=== PATIENT | male | born 1995 | race Caucasian/White ===

== ENCOUNTER 2016-08-31 02:48 | Emergency (ER) | payer OTHER ==
[~2016-08-31] VITALS: Ht 175.2 cm; Wt 62.6 kg
[~2016-08-31 02:48] MED LIST: AMOXICILLIN500 M2 PO; AMOXICILLIN500 MG PO; ANAPROX DS550 MG PO; CLEOCIN150 MG PO; COLACE100 MG PO; DARVOCET N 1001 TAB PO; HYDROCODONE BIT1 T11 PO; IBU-6600 MG PO; KEFLEX500 MG PO; MOTRIN800 MG PO; MUCINEX1200 M1 PO; Motrin,Rufen800 MG PO; NAPROSYN500 MG PO; NKHM; NORCO 10-325 T1 EACH PO; NORCO 5-325 TA1 EACH PO; SEROQUEL PO; ZITHROMAX250 MG PO; ZOFRAN ODT4 MG SL; Zofran4 MG PO
[2016-08-31] MEDS ORDERED: PENICILLIN VK500 MG PO (03:05)
[2016-08-31] MEDS ORDERED: PERIDEX118 ML MM (03:05)
[2016-08-31] MEDS ORDERED: NAPROSYN500 MG PO (03:05)
[2016-09-30] MEDS ORDERED: CLINDAMYCIN HC300 MG PO (00:07)
[2016-09-30] MEDS ORDERED: HYDROCODONE BIT1 T11 PO (00:39)
[2016-10-20] MEDS ORDERED: IBU800 M1 PO (22:33)
[2016-10-20] MEDS ORDERED: NAPROSYN500 MG PO (22:47)
[2016-10-20] MEDS ORDERED: AMOXICILLIN500 M2 PO (22:47)
[2016-11-01] MEDS ORDERED: CLINDAMYCIN HC300 MG PO (23:33)
[2016-11-01] MEDS ORDERED: ANAPROX DS550 MG PO (23:33)
== END 2016-08-31 03:20 | disposition home or self-care (01) ==
LOC: ED 02:48
DX: K06.9 Disorder of gingiva and edentulous alveolar ridge, unspecified (principal); K02.9 Dental caries, unspecified; R51 Headache; F17.200 Nicotine dependence, unspecified, uncomplicated; F32.9 Major depressive disorder, single episode, unspecified; F25.9 Schizoaffective disorder, unspecified

== ENCOUNTER 2016-11-13 20:10 | Emergency (ER) | payer OTHER ==
[~2016-11-13] VITALS: Ht 175.2 cm; Wt 59.0 kg
[~2016-11-13 20:10] MED LIST changes: +CLINDAMYCIN HC300 MG PO; +IBU800 M1 PO; +PENICILLIN VK500 MG PO; +PERIDEX118 ML MM
[2016-11-13] MEDS ORDERED: NAPROSYN500 MG PO (23:40)
[2016-11-13] MEDS ORDERED: PREDNISONE50 MG PO (23:40)
[2016-11-13] MEDS ORDERED: VALIUM5 MG PO (23:40)
== END 2016-11-13 23:50 | disposition home or self-care (01) ==
LOC: ED 20:10
DX: S29.019A Strain of muscle and tendon of unspecified wall of thorax, initial encounter (principal); F17.200 Nicotine dependence, unspecified, uncomplicated; X58.XXXA Exposure to other specified factors, initial encounter; Y93.89 Activity, other specified; Y92.9 Unspecified place or not applicable; Y99.9 Unspecified external cause status

== ENCOUNTER 2016-11-19 18:57 | Emergency (ER) | payer OTHER ==
[~2016-11-19] VITALS: Ht 172.7 cm; Wt 63.5 kg
[~2016-11-19 18:57] MED LIST changes: +PREDNISONE50 MG PO; +VALIUM5 MG PO
[2016-11-19] MEDS ORDERED: ANUSOL-HC25 MG R (19:48)
[2016-11-19 19:49] LABS: BASO # 0.1 10*3/uL (0.0-0.1); BASO % 0.6 % (0.0-1.0); EOS # 0.3 10*3/uL (0.0-0.4); EOS % 2.5 % (1.0-4.0); HEMATOCRIT 43.9 % (42.0-52.0); IG # 0.3 10*3/uL (0.0-0.1); LYMPH # 3.2 10*3/uL (1.3-4.4); LYMPH % 27.7 % (27.0-41.0); MEAN CELL VOLUME 84.6 fl (80.0-94.0); MEAN CORPUSCULAR HGB 28.9 pg (27.0-31.0); MEAN CORPUSCULAR HGB CONC 34.2 g/dl (33.0-37.0); MEAN PLATELET VOLUME 9.8 fl (9.6-12.3); MONO # 0.9 10*3/uL (0.1-1.0); MONO % 7.9 % (3.0-9.0); NEUT # 6.8 10*3/uL (2.3-7.9); NEUT % 58.9 % (47.0-73.0); PLATELET COUNT AUTOMATED 279 10*3/uL (130-400); RED BLOOD COUNT 5.19 10*6/uL (4.50-5.90); RED CELL DISTRI WIDTH 14.3 % (0-14.5); WHITE BLOOD COUNT 11.5 10*3/uL (4.8-10.8)
[2016-11-19] MEDS ORDERED: PAIN RELIEVER325 MG PO (19:49)
[2016-11-19 20:04] LABS: BUN 12 mg/dl (7-24); CARBON DIOXIDE 27 mmol/L (21-32); CHLORIDE 106 mmol/L (98-107); EST GLOM FILT AFRICAN AMERICAN > 60 ml/min; GLUCOSE 81 mg/dL (65-99); POTASSIUM 3.7 mmol/L (3.5-5.1); SODIUM 142 mmol/L (136-145)
== END 2016-11-19 20:25 | disposition home or self-care (01) ==
LOC: ED 18:57
PROVIDERS: Emergency Medicine Emergency Medical Services
DX: K62.5 Hemorrhage of anus and rectum (principal); F32.9 Major depressive disorder, single episode, unspecified; F25.9 Schizoaffective disorder, unspecified; Z79.899 Other long term (current) drug therapy

== ENCOUNTER 2016-12-27 20:14 | Emergency (ER) | payer OTHER ==
[~2016-12-27] VITALS: Ht 175.2 cm; Wt 59.0 kg
[~2016-12-27 20:14] MED LIST changes: +ANUSOL-HC25 MG R; +PAIN RELIEVER325 MG PO
[2016-12-27] MEDS ORDERED: KETOROLAC10 MG PO (21:36)
[2016-12-27] MEDS ORDERED: Orphenadrine C100 MG PO (21:36)
== END 2016-12-27 21:51 | disposition home or self-care (01) ==
LOC: ED 20:14
DX: S16.1XXA Strain of muscle, fascia and tendon at neck level, initial encounter (principal); F32.9 Major depressive disorder, single episode, unspecified; F25.9 Schizoaffective disorder, unspecified; X50.0XXA Overexertion from strenuous movement or load, initial encounter; Y93.9 Activity, unspecified; Y92.89 Other specified places as the place of occurrence of the external cause; Y99.9 Unspecified external cause status

== ENCOUNTER 2017-02-04 17:11 | Emergency (ER) | payer OTHER ==
[~2017-02-04] VITALS: Ht 175.2 cm; Wt 59.9 kg
[~2017-02-04 17:11] MED LIST changes: +KETOROLAC10 MG PO; +Orphenadrine C100 MG PO
== END 2017-02-04 19:04 | disposition home or self-care (01) ==
LOC: ED 17:11
DX: S60.222A Contusion of left hand, initial encounter (principal); S60.221A Contusion of right hand, initial encounter; F17.200 Nicotine dependence, unspecified, uncomplicated; X58.XXXA Exposure to other specified factors, initial encounter; Y93.89 Activity, other specified; Y92.89 Other specified places as the place of occurrence of the external cause; Y99.8 Other external cause status

== ENCOUNTER 2017-04-02 23:03 | Emergency (ER) | payer OTHER ==
[~2017-04-02] VITALS: Ht 175.2 cm; Wt 61.2 kg
[2017-04-02] MEDS ORDERED: CLINDAMYCIN150 MG PO (23:18)
[2017-04-03] MEDS ORDERED: ZOFRAN4 MG PO (19:16)
[2017-04-03] MEDS ORDERED: BENTYL10 MG PO (19:16)
== END 2017-04-02 23:35 | disposition home or self-care (01) ==
LOC: ED 23:03
DX: K02.9 Dental caries, unspecified (principal); K04.01 Reversible pulpitis; F17.200 Nicotine dependence, unspecified, uncomplicated

== ENCOUNTER 2017-04-03 16:41 | Emergency (ER) | payer OTHER ==
[~2017-04-03] VITALS: Wt 61.2 kg
[~2017-04-03 16:41] MED LIST changes: +CLINDAMYCIN150 MG PO
[2017-04-03 17:00] LABS: BASO % 0.4 % (0.0-1.0); EOS # 0.3 10*3/uL (0.0-0.4); EOS % 3.1 % (1.0-4.0); HEMATOCRIT 44.9 % (42.0-52.0); HEMOGLOBIN 15.5 g/dl (14.0-18.0); LYMPH # 1.8 10*3/uL (1.3-4.4); LYMPH % 17.9 % (27.0-41.0); MEAN CELL VOLUME 84.7 fl (80.0-94.0); MEAN CORPUSCULAR HGB 29.2 pg (27.0-31.0); MEAN CORPUSCULAR HGB CONC 34.5 g/dl (33.0-37.0); MEAN PLATELET VOLUME 9.8 fl (9.6-12.3); MONO # 0.7 10*3/uL (0.1-1.0); MONO % 7.1 % (3.0-9.0); NEUT # 7.2 10*3/uL (2.3-7.9); NEUT % 71.1 % (47.0-73.0); PLATELET COUNT AUTOMATED 294 10*3/uL (130-400); RED CELL DISTRI WIDTH 14.3 % (0-14.5); WHITE BLOOD COUNT 10.1 10*3/uL (4.8-10.8)
[2017-04-03 17:16] LABS: ALBUMIN 4.2 gm/dl (3.1-4.5); ALKALINE PHOSPHATASE 91 U/L (45-117); BILIRUBIN, TOTAL 0.3 mg/dl (0.2-1.0); BUN 14 mg/dl (7-24); CARBON DIOXIDE 21 mmol/L (21-32); CHLORIDE 108 mmol/L (98-107); EST GLOM FILT AFRICAN AMERICAN > 60 ml/min; GLUCOSE 91 mg/dL (65-99); POTASSIUM 4.5 mmol/L (3.5-5.1); SGOT/AST 18 IU/L (3-35); SGPT/ALT 26 U/L (12-78); SODIUM 136 mmol/L (136-145); TOTAL PROTEIN 7.6 gm/dL (6.4-8.2)
[2017-04-03] MEDS ORDERED: ZOFRAN4 MG PO (19:16)
[2017-04-03] MEDS ORDERED: BENTYL10 MG PO (19:16)
== END 2017-04-03 19:23 | disposition home or self-care (01) ==
LOC: ED 16:41
PROVIDERS: Nurse Practitioner Family
DX: R19.7 Diarrhea, unspecified (principal); R10.30 Lower abdominal pain, unspecified

== ENCOUNTER 2017-04-07 00:09 | Emergency (ER) | payer OTHER ==
[~2017-04-07] VITALS: Ht 175.2 cm; Wt 61.2 kg
[~2017-04-07 00:09] MED LIST changes: +BENTYL10 MG PO; +ZOFRAN4 MG PO
[2017-04-07] MEDS ORDERED: Motrin,Rufen800 MG PO (00:29)
== END 2017-04-07 00:51 | disposition home or self-care (01) ==
LOC: ED 00:09
DX: K04.01 Reversible pulpitis (principal); K02.9 Dental caries, unspecified; F17.200 Nicotine dependence, unspecified, uncomplicated

== ENCOUNTER 2018-01-21 18:22 | Emergency (ER) | payer OTHER ==
[~2018-01-21] VITALS: Ht 177.8 cm; Wt 66.7 kg
[2018-01-21] MEDS ORDERED: CYCLOBENZAPRINE5 M3 PO (20:52)
[2018-01-21] MEDS ORDERED: Motrin,Rufen800 MG PO (20:52)
== END 2018-01-21 21:00 | disposition home or self-care (01) ==
LOC: ED 18:22
DX: S20.221A Contusion of right back wall of thorax, initial encounter (principal); M54.2 Cervicalgia; M25.511 Pain in right shoulder; W11.XXXA Fall on and from ladder, initial encounter; Y93.89 Activity, other specified; Y92.89 Other specified places as the place of occurrence of the external cause; Y99.8 Other external cause status

== ENCOUNTER 2018-05-11 18:21 | Emergency (ER) | payer OTHER ==
[~2018-05-11] VITALS: Ht 175.2 cm; Wt 68.0 kg
[~2018-05-11 18:21] MED LIST changes: +CYCLOBENZAPRINE5 M3 PO
[2018-05-11] MEDS ORDERED: NORCO 5-325 TA1 EACH PO (19:19)
[2018-05-11] MEDS ORDERED: IBUPROFEN600 MG PO (19:19)
[2018-05-11] MEDS ORDERED: SILVADENE,SSD C50 GM T (19:19)
== END 2018-05-11 19:35 | disposition home or self-care (01) ==
LOC: ED 18:21
DX: T24.292A Burn of second degree of multiple sites of left lower limb, except ankle and foot, initial encounter (principal); X08.8XXA Exposure to other specified smoke, fire and flames, initial encounter; Y93.61 Activity, american tackle football; Y92.89 Other specified places as the place of occurrence of the external cause; Y99.8 Other external cause status

== ENCOUNTER 2021-01-26 22:17 | Emergency (ER) | payer OTHER ==
[~2021-01-26] VITALS: Ht 172.7 cm; Wt 81.6 kg
[~2021-01-26 22:17] MED LIST changes: +IBUPROFEN600 MG PO; +SILVADENE,SSD C50 GM T
[2021-01-26] MEDS ORDERED: SILVADENE20 GM T (22:27)
== END 2021-01-26 23:42 | disposition home or self-care (01) ==
LOC: ED 22:17
DX: T23.201A Burn of second degree of right hand, unspecified site, initial encounter (principal); Z79.899 Other long term (current) drug therapy; X08.8XXA Exposure to other specified smoke, fire and flames, initial encounter; Y93.89 Activity, other specified; Y92.89 Other specified places as the place of occurrence of the external cause; Y99.8 Other external cause status

== ENCOUNTER 2021-01-31 21:50 | Emergency (ER) | payer OTHER ==
[~2021-01-31] VITALS: Ht 177.8 cm; Wt 63.5 kg
[~2021-01-31 21:50] MED LIST changes: +SILVADENE20 GM T
[2021-01-31] MEDS ORDERED: CEPHALEXIN500 M1 PO (22:06)
== END 2021-01-31 22:30 | disposition home or self-care (01) ==
LOC: ED 21:50
DX: T23.211D Burn of second degree of right thumb (nail), subsequent encounter (principal); Z79.899 Other long term (current) drug therapy; X08.8XXD Exposure to other specified smoke, fire and flames, subsequent encounter